=== PATIENT | male | born 1955 | race Caucasian/White ===

== ENCOUNTER 2016-06-29 16:29 | Inpatient (IN) | payer BC ==
[~2016-06-29] VITALS: Ht 172.7 cm; Wt 80.3 kg
[2016-06-29 17:04] VITALS: BP 139/96
[2016-06-29 17:36] LABS: TROPONIN I < 0.30 ng/mL (<=0.30)
[2016-06-29 17:59] LABS: BASOPHILS % (AUTO) 0.9 % (0.0-2.0); EOSINOPHILS % (AUTO) 0.1 % (0.0-3.0); LYMPHOCYTES % (AUTO) 19.6 % (20.0-45.0); MEAN CORPUSCULAR HEMOGLOBIN 28.2 PG (27.0-31.0); MEAN CORPUSCULAR HGB CONC 32.7 G/DL (32.0-36.0); MEAN CORPUSCULAR VOLUME 86 FL (80-99); MEAN PLATELET VOLUME 8.6 FL (6.5-10.1); NEUTROPHILS % (AUTO) 73.4 % (45.0-75.0); PLATELET COUNT 243 K/UL (150-450); RED CELL DISTRIBUTION WIDTH 11.4 % (11.6-14.8); WHITE BLOOD COUNT 8.1 K/UL (4.8-10.8)
[2016-06-29 18:04] LABS: ALANINE AMINOTRANSFERASE 44 U/L (3-41); ALBUMIN/GLOBULIN RATIO 1.1 (1.0-2.7); ANION GAP 25 (5-15); ASPARTATE AMINO TRANSFERASE 40 U/L (5-40); CALCIUM 11.8 mg/dL (8.6-10.2); CARBON DIOXIDE 20 mEQ/L (20-30); CHLORIDE 99 mEQ/L (98-107); CREATININE 1.2 mg/dL (0.7-1.2); GLOMERULAR FILTRATION RATE > 60 mL/min (>60); HEMOLYSIS 47; SODIUM 144 mEQ/L (135-145); TOTAL PROTEIN 7.6 g/dL (6.6-8.7)
[2016-06-29 18:15] LABS: CKMB 4.6 ng/mL (< 6.7)
[2016-06-29 18:19] VITALS: BP 177/113
--- NOTE | 2016-06-29 18:53 | Emergency Room Report ---
History of Present Illness General Chief Complaint: Dyspnea/Respdistress Source: EMS Present Illness HPI 61 YO M with unknown medical history BIBEMS for hypoxia, respiratory distress. Patient denies history of CHF, COPD/asthma. Denies fever/chills, cough. Feels SOB. Denies chest pain. No other history from patient or EMS. No family member or friends are present. Allergies: Coded Allergies: No Known Allergies (Unverified , 06/29/16) Patient History Past Medical History: unable to obtain Past Surgical History: unable to obtain Pertinent Family History: unable to obtain Social History: Denies: alcohol use, drug use, smoking Immunizations: UTD Reviewed Nursing Documentation: PMH: Agreed, PSxH: Agreed Nursing Documentation-PMH Past Medical History: No History, Except For Hx Hypertension: Yes Review of Systems All Other Systems: negative except mentioned in HPI Physical Exam Vital Signs Date Time Temp Pulse Resp B/P Pulse Ox O2 Delivery O2 Flow Rate FiO2 06/29/16 16:30 117 22 148/86 65 Non-Rebreather 15.0 06/29/16 17:02 100 Sp02 EP Interpretation: reviewed, abnormal General Appearance: normal inspection, well appearing, no apparent distress, alert, GCS 15, non-toxic Head: normocephalic, atraumatic Eyes: bilateral eye EOMI, bilateral eye PERRL ENT: normal ENT inspection, hearing grossly normal, normal voice Neck: normal inspection, full range of motion, supple, no bony tend Respiratory: normal inspection, chest non-tender, lungs clear, no respiratory distress, no retraction, no accessory muscle use, no wheezing, decreased breath sounds, other - poor respiratory effort Cardiovascular #1: regular rate, rhythm, no edema Gastrointestinal: normal inspection, normal bowel sounds, non tender, soft, no guarding, no hernia Genitourinary: no CVA tenderness Musculoskeletal: normal inspection, back normal, normal range of motion, Supriya' s Sign negative Neurologic: normal inspection, alert, oriented x3, responsive, 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 No hypotensive. Afebrile Patient immediately placed on hyperbaric tech with rhytm strip and STAT EKG was obtained which showed no acute ischemia VS were stable. No hypoxia. Afebrile. No SIRS. Initial management indicated: CBC, CMP, troponin, BNP, CXR, nebs, steroids, empiric Abx Highly suspected: COPD exacerbation, +/- PNA Possible interventions - BIPAP, additional Abx. CC time included frequent re-exams, interpretation of labs, imaging, adjustment of Abx Critical care time of 35 minutes does not include reportable procedures. Medical Decision Making Diagnostic Impression: Primary Impression: Dyspnea Qualified Codes: R06.00 - Dyspnea, unspecified Additional Impressions: Respiratory distress Hypokalemia ER Course 61 YOM with unknown etiology for acute dyspnea. Improvd O2 sat on BIPAP. Patient has no complaints. Alert and oriented. ECG shows sinus tach, incomplete RBBB. Troponin 0. H&H stable. No leuks. Mild HypoK was replated CXR: No acute PTX, PNA or pulm congestion A: Improved on bipap. Unstable for CT Chest at this point to eval for PE however low suspicion Endorsed to Dr Levy at 650pm EKG Diagnostic Results Rate: tachycardiac Rhythm: other - incomplete RBBB Rhythm Strip Diag. Results EP Interpretation: yes Rate: 105 Rhythm: NSR, no PVC's, no ectopy Chest X-Ray Diagnostic Results EP Interpretation: Yes Findings: no consolidation, no effusion, no pneumothorax, no acute cardiopulmonary disease Number of Views: 1 Last Vital Signs Date Time Temp Pulse Resp B/P Pulse Ox O2 Delivery O2 Flow Rate FiO2 06/29/16 18:19 103 20 177/113 95 Bi-pap 100 06/29/16 17:10 15.0 Status: improved Disposition: ADMITTED INPATIENT Condition: Critical Referrals: [facility],REFERRING (PCP) JOE MOREJON M.D. Jun 29, 2016 18:53
[2016-06-29] MEDS ORDERED: UNOBMED (19:08)
[2016-06-29 19:09] VITALS: BP 180/110
[2016-06-29] MEDS ORDERED: CHLORTHALIDONE25 MG ORAL (19:58)
[2016-06-29 20:00] VITALS: BP 170/95
[2016-06-29] MEDS ORDERED: Milk of Magnesia 30ml Ud ORAL PRN (21:45)
[2016-06-29] MEDS: Albuterol ud Inhalation HHN SCH (23:45)
[2016-06-30 00:01] VITALS: BP 151/94
[2016-06-30] MEDS: Solu-MEDROL 40mg Inj IVP SCH ×4 (00:02→21:35)
[2016-06-30] MEDS: Enoxaparin 80mg Inj SUBQ SCH ×2 (00:14→12:25)
[2016-06-30] MEDS: cefTRIAXone 1 GM in D5W 55 ML IVPB SCH ×2 (01:15→23:36)
[2016-06-30] MEDS: Albuterol ud Inhalation HHN SCH ×6 (02:21→22:46)
[2016-06-30 04:11] VITALS: BP 144/87
[2016-06-30 05:10] LABS: APPEARANCE,URINE CLEAR; KETONES,URINE NEGATIVE (NEGATIVE); LEUKOCYTE ESTERASE ,URINE 1+ (NEGATIVE); NITRITE,URINE NEGATIVE (NEGATIVE); PH,URINE 5 (4.5-8.0); PROTEIN,URINE 3+ (NEGATIVE); UROBILINOGEN,URINE NORMAL MG/DL (0.0-1.0)
[2016-06-30 05:27] LABS: RBC,URINE 15-20 /HPF (0 - 0)
[2016-06-30 05:28] LABS: BACTERIA,URINE FEW /HPF; COARSE GRANULAR CASTS,URINE 0-2 /LPF; SQUAMOUS EPITHELIAL CELL,UR FEW /LPF (NONE/OCC); URIC ACID CRYSTALS,URINE MODERATE /LPF
[2016-06-30 06:56] LABS: BASOPHILS % (AUTO) 0.4 % (0.0-2.0); LYMPHOCYTES % (AUTO) 13.2 % (20.0-45.0); MEAN CORPUSCULAR HEMOGLOBIN 28.4 PG (27.0-31.0); MEAN CORPUSCULAR HGB CONC 33.9 G/DL (32.0-36.0); MEAN CORPUSCULAR VOLUME 84 FL (80-99); MEAN PLATELET VOLUME 8.5 FL (6.5-10.1); MONOCYTES % (AUTO) 4.9 % (1.0-10.0); NEUTROPHILS % (AUTO) 81.5 % (45.0-75.0); PLATELET COUNT 244 K/UL (150-450); RED BLOOD COUNT 4.31 M/UL (4.70-6.10); RED CELL DISTRIBUTION WIDTH 11.9 % (11.6-14.8); WHITE BLOOD COUNT 7.9 K/UL (4.8-10.8)
[2016-06-30 07:27] LABS: ALANINE AMINOTRANSFERASE 36 U/L (3-41); ALBUMIN/GLOBULIN RATIO 1.1 (1.0-2.7); ANION GAP 20 (5-15); ASPARTATE AMINO TRANSFERASE 31 U/L (5-40); CALCIUM 11.5 mg/dL (8.6-10.2); CARBON DIOXIDE 22 mEQ/L (20-30); CHLORIDE 105 mEQ/L (98-107); CHOLESTEROL 125 mg/dL (< 200); CHOLESTEROL/HDL RATIO 3.2 (3.3-4.4); CREATININE 1.2 mg/dL (0.7-1.2); GLOMERULAR FILTRATION RATE > 60 mL/min (>60); HEMOLYSIS 2; LDL CHOLESTEROL (CALC.) 76 mg/dL (60-99); SODIUM 147 mEQ/L (135-145); TOTAL PROTEIN 7.1 g/dL (6.6-8.7)
[2016-06-30 07:49] LABS: TROPONIN I 0.42 ng/mL (<=0.30)
[2016-06-30] MEDS: Aspirin EC 81mg tab ORAL SCH (09:35)
[2016-06-30 10:36] LABS: ABG ALLEN TEST POSITIVE; ABG BASE EXCESS 0; ABG PCO2 26.8 mmHg (35.0-45.0)
--- NOTE | 2016-06-30 10:56 | Diagnostic Imaging Report ---
Indication: SOB Technique: One view of the chest Comparison: none Findings: The heart is enlarged. There is minimal right basilar atelectasis. Lungs and pleural spaces are otherwise clear. There is a nondisplaced fracture of the left seventh rib. Impression: Bibasilar atelectasis Cardio megaly Left seventh rib compression fracture
[2016-06-30 12:19] VITALS: BP 140/78
--- NOTE | 2016-06-30 12:58 | Diagnostic Imaging Report ---
ndication: 51-year-old male with unknown etiology for acute dyspnea Technique: IV administration nonionic contrast. Spiral acquisitions obtained from the lung bases to the lung apices. Multiplanar and 3-D reconstructions were generated. Total dose length product 832 mGycm. CTDIvol(s) 12, 12, 100, 23 mGy Comparison: None Findings: Pulmonary arterial opacification is adequate not optimal. In addition, there is extensive image degradation due to respiratory motion artifact. No gross central large vessel pulmonary embolus is demonstrated. However, motion artifact precludes exclusion of embolus at the lung bases. Normal caliber pulmonary arteries. The heart is enlarged with global 4 chamber cardiomegaly but no disproportionate left ventricular dilatation is noted. The ascending thoracic aorta is ectatic, measuring 4.2 cm diameter, but not frankly aneurysmal. No thoracic aortic dissection is demonstrated. The lung parenchyma demonstrates a noncalcified soft tissue mass in the superior segment of the right lower lobe, which measures 14 mm diameter. There is compressive atelectasis at both lung bases. There is a small left pleural effusion. There is pleural thickening on the left. There is focal pleural thickening versus mass in the anterior pleural space at the level of pulmonary marnie on the right. There is diffuse bony involvement by innumerable osteolytic lesions. Essentially every thoracic vertebral is in the false by tumor, and there is extensive posterior element involvement as well. At the T10 level, tumor extends through the posterior wall of the vertebral body and well into the spinal canal, narrowing the spinal canal to a minimum AP dimension of 6 mm. There are compression fracture deformities of the T10, T11, T12, and L1 vertebral bodies. These results in pronounced kyphotic deformity. There is also thoracic scoliotic deformity, mild. There is also diffuse involvement of the ribs bilaterally, and there is a pathologic fracture of the posterior ninth rib. There are also pathologic fractures of the posterior lateral left seventh rib and the posterior right 10th rib. There is extensive osteolytic involvement of the sternum. No pericardial effusion. The esophagus is unremarkable. No mediastinal or hilar mass or adenopathy. The included thyroid is unremarkable. No axillary or chest wall mass or adenopathy. The included upper abdominal anatomy demonstrates a 2.2 cm left upper pole renal cyst. Impression: Very limited exam for assessment of acute pulmonary embolus, due to suboptimal distal contrast opacification and, especially, extensive respiratory motion artifact. No gross large vessel central pulmonary embolus demonstrated. Extensive and diffuse bony involvement by multiple osteolytic lesions. 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 Multiple pathologic rib fractures, as described Multiple pathologic vertebral body compression fractures, as described. Resultant kyphotic deformity 14 mm right lower lobe superior segment lung mass, possibly the primary tumor Bilateral left greater than right basilar atelectatic changes and small left-sided pleural effusion Bilateral pleural thickening, possibly malignant Incidental finding of left upper pole renal cyst Findings discussed by phone with Dr. Nolan at the time of interpretation The CT scanner at [facility] is accredited by the [employer] and the scans are performed using protocols designed to limit radiation exposure to as low as reasonably achievable to attain images of sufficient resolution adequate for diagnostic evaluation.
[2016-06-30] MEDS ORDERED: oxyCODONE 5mg IR tab ORAL PRN (14:30)
[2016-06-30] MEDS: oxyCODONE 5mg IR tab ORAL SCH ×3 (14:42→22:36)
[2016-06-30 16:02] VITALS: BP 145/89
[2016-06-30] MEDS ORDERED: Tubing IV Secondary IV ONE (18:20)
[2016-06-30 20:18] VITALS: BP 151/80
--- NOTE | 2016-06-30 22:07 | History and Physical Report ---
DATE OF ADMISSION: 06/29/2016 CHIEF COMPLAINT AND REASON FOR HOSPITALIZATION: The patient presents with abnormal laboratories, back pain and shortness of breath. HISTORY OF PRESENT ILLNESS: The patient presents with shortness of breath and was placed on BiPAP for hypoxemia in the emergency room. He is complaining of back pain for about a month, worsening recently and came with shortness of breath. The patient is a nonsmoker, no history of chronic lung disease. There is a history of hypertension and back pain. He has not really been seen doctors on a regular basis. The patient prior to this has generally been in good health. PAST SURGICAL HISTORY: As a young child, some sort of skull lesion, possible fracture. MEDICATIONS: Chlorthalidone and he has recently taken tramadol, muscle relaxant one or two times and Voltaren cream. ALLERGIES: At 1-month-old, he apparently had an adverse reaction to erythromycin or similar drug. HABITS: He is a nonsmoker. Rare alcohol drinker. No illicit drugs. SOCIAL HISTORY: He has a close female radiology technologist. He works as an staff attorney. FAMILY HISTORY: Father had after having a CVA five years prior to in his 70s. His uncle and a grandfather in their 70s with myocardial infarction. Mother had cancer and Alzheimer disease. He has one brother one sister, alive and well. REVIEW OF SYSTEMS: HEENT: Vision hearing is good. Endocrine: No known diabetes or thyroid disease. Pulmonary: No prior history of asthma, TB, chronic cough or shortness of breath. Cardiac: No history of angina or MA. There is a history of hypertension. Gastrointestinal: No gastrointestinal bleeding or ulcers. He has had mild constipation lately. No change in stools other than constipation. Genitourinary: He has nocturia about three times. No dysuria or dribbling. Musculoskeletal: He had severe back pain and kyphosis, recent onset. He has had some swelling in the left leg. Neurologic: No paresthesias, numbness or focal weakness. No history of stroke, seizures or syncope. PHYSICAL EXAMINATION: GENERAL: The patient is alert man, somewhat anxious lying in bed, in pain. VITAL SIGNS: Temperature 96.9 degrees, pulse 96, respirations 20, and blood pressure 140/78, and pulse oximetry 98%. HEENT: Sclerae nonicteric. Ocular motions intact in all directions. Oral mucosa is slightly dry. NECK: No adenopathy or thyroid enlargement. LUNGS: Clear. Distant breath sounds. BACK: Severe kyphosis. HEART: Regular rhythm. I hear no murmur. ABDOMEN: Soft without organomegaly or masses. EXTREMITIES: No edema, cyanosis or clubbing. There is some varicose veins. There is no swollen joints. NEUROLOGIC: He is alert and oriented. Ocular motions intact in all directions. Smile symmetric. Tongue is midline. He moves all extremities equally, but has quite a bit of pain with any movement in bed and requires two person assist to turn him in bed. RECTAL: Prostate is enlarged 1/4 smooth with no nodules. Light brown stool on the glove. Testes are normal. LABORATORY AND DIAGNOSTIC DATA: Review of pertinent labs show a white count of 8.1 and hemoglobin is 14.1. The calcium 11.8 and repeat 11.5. Potassium is 3, BUN 32, and creatinine 1.2. BNP 863. Troponin less than 0.30 and 0.42. Albumin is 3.8. Alkaline globulin of 3.1. Urinalysis showed 15 to 20 red cells per high-power field and 2 to 4 white cells per high-power field. He did have a CT scan of the lung and chest, which shows multiple bony metastases, cardiomegaly and some possible spinal cord compression at T10, multiple pathologic fractures, bilateral left greater than right basal atelectatic change with small left-sided pleural effusions, bilateral pleural thickening, possible malignant and there is a noncalcified soft tissue mass in the superior segment of the right lower lobe. IMPRESSION: The patient presents with shortness of breath. Significant findings include hypercalcemia, bone metastasis, possible lung primary versus metastatic lesion in the lung. Shortness of breath has improved with steroids and respiratory therapy. There is no definite evidence of pulmonary emboli and DVT study is negative. He also has cardiomegaly and borderline troponin. PLAN: The patient will receive steroids both for the pulmonary effect on calcium. We will do saline diuresis for his hypercalcemia. The patient has been informed that he very likely has a malignancy and will need further imaging tissue, biopsy, evaluation of spine and combined approach. He is aware of this diagnosis. He will also need pain management. Detailed orders were written. Jass Nolan M.D. DR: NASH JOB#: [id number] CC:
--- NOTE | 2016-06-30 22:27 | Consultation ---
DATE OF CONSULTATION: 06/30/2016 PULMONARY CONSULTATION HISTORY OF PRESENT ILLNESS: This is a 61-year-old male with unknown past history of possible hypoxic respiratory distress. He was placed on the BiPAP this morning. The BiPAP was off. The patient denies any other problems at this point in time. He is in the process of being weak for the CT scan. The patient denies any headaches, hematemesis, melena, or hematochezia. PAST MEDICAL HISTORY: Unknown. SURGERIES: Not known. PHYSICAL EXAMINATION: GENERAL: Reveals a 61-year-old. VITAL SIGNS: Blood pressure is 140/70, heart rate 84, and respirations 18, and afebrile. HEENT: Unremarkable. CHEST: Clear breath sounds bilaterally. ABDOMEN: Soft. EXTREMITIES: No edema. LABORATORY DATA: Lab testing shows normal CBC. Creatinine of 1.2. Potassium of 3. Troponin is 0.42, which is elevated. Pro-BNP 363. WBC of 0.5, 87. Tox screen negative. Urinalysis shows few WBCs. IMAGING STUDIES: Show a CT pulmonary angiogram with multiple pathological fractures possibly cord compression at T10 and bilateral effusions. IMPRESSION: 1. 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 2. Respiratory insufficiency. DISCUSSION: We will defer care to Dr. Nolan. At this time, the patient is stable. He needs high level of care possibly steroid and transfer to facility, which did provide him aggressive local wound care. We will discuss with Dr. Nolan. Enmanuel Woodall M.D. DR: GOGO JOB#: [id number] CC:
[2016-06-30 23:43] VITALS: BP 138/93
--- NOTE | 2016-07-01 00:07 | Consultation ---
DATE OF CONSULTATION: 06/30/2016 CARDIOLOGY CONSULTATION REQUESTING PHYSICIAN: Jass Nolan M.D. REASON FOR CONSULTATION: Elevated troponin level. HISTORY OF PRESENT ILLNESS: The patient is a 61-year-old male presented to the emergency room with shortness of breath and hypoxia. He denied any other constitutional symptoms or any prior history of cardiopulmonary disease. He was evaluated in the emergency room for pulmonary emboli with a CT angiogram of the chest, which was negative, but did reveal some diffuse osteolytic lesions of the spine and ribs. The patient was also noted to have a low potassium level. His initial troponin level was normal, however, repeat troponin level was 0.42. The patient continues to deny any chest pain or shortness of breath. PAST MEDICAL HISTORY: Hypertension, otherwise negative. ALLERGIES: None known. MEDICATIONS: Prior to admission, chlorthalidone. FAMILY HISTORY: Noncontributory. SOCIAL HISTORY: Negative for smoking, alcohol, or substance abuse. REVIEW OF SYSTEMS: A 10-point review of systems performed. Pertinent data outlined above. Otherwise all systems negative. PHYSICAL EXAMINATION: VITAL SIGNS: Blood pressure 148/86, pulse 117, respirations 22, and afebrile. HEENT: Conjunctivae are pink. Sclerae are anicteric. Oropharynx clear. NECK: Supple. LUNGS: Clear. CARDIAC: Regular. Normal S1 and S2. No murmur. ABDOMEN: Soft and nontender. EXTREMITIES: No edema. LABORATORY AND DIAGNOSTIC STUDIES: EKG reveals sinus tachycardia, incomplete right bundle-branch block. Potassium is 3.0. Arterial blood gas 7.52, 27, and 87. IMPRESSION: 1. Dyspnea. 2. Acute respiratory alkalosis. 3. Elevated troponin level suggesting acute myocardial ischemia and possible non-ST elevation infarction. 4. Sinus tachycardia. 5. Right bundle-branch block of no clinical significance. 6. Osteolytic lesions of the spine and ribs of unknown etiology at this time. 7. Hypokalemia. 8. Echocardiogram revealed normal ejection fraction and a diastolic relaxation abnormality with no signs of pulmonary hypertension or pericardial effusion. RECOMMENDATIONS: Recommend cardiac monitoring, serial troponins, oral aspirin, nasal oxygen, DVT prophylaxis, pain control, and PSA. We will follow with you during this hospital course. Del Gaines M.D. DR: BLANCA JOB#: [id number] CC:
[2016-07-01] MEDS: oxyCODONE 5mg IR tab ORAL SCH ×6 (02:24→22:19)
[2016-07-01] MEDS: Albuterol ud Inhalation HHN SCH ×6 (03:01→23:00)
[2016-07-01 03:43] VITALS: BP 136/84
[2016-07-01 04:41] LABS: BASOPHILS % (AUTO) 0.1 % (0.0-2.0); EOSINOPHILS % (AUTO) 0.1 % (0.0-3.0); LYMPHOCYTES % (AUTO) 11.7 % (20.0-45.0); MEAN CORPUSCULAR HGB CONC 34.3 G/DL (32.0-36.0); MEAN CORPUSCULAR VOLUME 84 FL (80-99); MEAN PLATELET VOLUME 9.1 FL (6.5-10.1); MONOCYTES % (AUTO) 4.3 % (1.0-10.0); NEUTROPHILS % (AUTO) 83.8 % (45.0-75.0); PLATELET COUNT 268 K/UL (150-450); RED BLOOD COUNT 4.06 M/UL (4.70-6.10); RED CELL DISTRIBUTION WIDTH 11.5 % (11.6-14.8); WHITE BLOOD COUNT 10.7 K/UL (4.8-10.8)
[2016-07-01 05:13] LABS: ALBUMIN/GLOBULIN RATIO 1.2 (1.0-2.7); CALCIUM 10.5 mg/dL (8.6-10.2); CREATININE 1.3 mg/dL (0.7-1.2); GLOMERULAR FILTRATION RATE 56.1 mL/min (>60); MAGNESIUM 1.6 mg/dL (1.7-2.5); PHOSPHORUS 4.8 mg/dL (2.5-4.8); POTASSIUM 4.6 mEQ/L (3.4-4.9); TOTAL PROTEIN 6.6 g/dL (6.6-8.7)
[2016-07-01] MEDS: Solu-MEDROL 40mg Inj IVP SCH (06:18)
[2016-07-01 07:03] LABS: PSA TOTAL 3.2 ng/mL (< 4.5)
[2016-07-01 08:00] VITALS: BP 137/88
[2016-07-01 08:15] LABS: TROPONIN I < 0.30 ng/mL (<=0.30)
[2016-07-01] MEDS: Aspirin EC 81mg tab ORAL SCH (08:16)
[2016-07-01] MEDS: Enoxaparin 40mg Inj SUBQ SCH (08:18)
--- NOTE | 2016-07-01 08:33 | Pulmonology Progress Note ---
Assessment/Plan Assessment/Plan ASSESSMENT: Acute hypoxemic respiratory failure New Dx RLL SS mass with multiple lytic lesions B effusions and BiB atx NSTEMI Impending spinal cord compression @ T10 HyperCa++ PLAN: Optimize pulmonary hygiene/mobilize as tolerated Titrate down FiO2 to keep SaO2 > 90% RTC and PRN nebs Continue IV Decadron Monitor volumes LMWH Serial neuro exam Awaiting transfer to higher level of care Subjective Allergies: Coded Allergies: No Known Allergies (Unverified , 06/29/16) Subjective On VM, o/w VSS + SOB, no cough, no F/C, feels week, no CP Ca++ better, trop downtrending Objective Last 24 Hour Vital Signs Date Time Temp Pulse Resp B/P Pulse Ox O2 Delivery O2 Flow Rate FiO2 07/01/16 06:55 90 20 96 Venturi Mask 14.0 55 07/01/16 06:50 88 20 94 Venturi Mask 14.0 55 07/01/16 06:50 Venturi Mask 14.0 55 07/01/16 06:50 94 Venturi Mask 4.0 55 07/01/16 03:57 90 07/01/16 03:43 97.3 94 18 136/84 91 Venturi Mask 55 07/01/16 03:08 90 20 93 Venturi Mask 14.0 55 07/01/16 03:01 92 20 92 Venturi Mask 12.0 50 06/30/16 23:53 95 06/30/16 23:43 97.7 103 20 138/93 91 Venturi Mask 50 06/30/16 22:55 88 20 93 Venturi Mask 12.0 50 06/30/16 22:46 88 20 92 Venturi Mask 10.0 45 06/30/16 21:34 109 151/80 06/30/16 20:22 45.0 88 06/30/16 20:18 97.0 109 20 151/80 88 Venturi Mask 6.0 06/30/16 20:00 103 06/30/16 19:44 103 20 94 Venturi Mask 10.0 45 06/30/16 19:36 94 Nasal Cannula 4.0 36 06/30/16 19:36 Nasal Cannula 4.0 36 06/30/16 19:35 105 20 94 Nasal Cannula 4.0 36 06/30/16 16:02 97.9 104 20 145/89 99 Nasal Cannula 2.0 06/30/16 16:00 103 06/30/16 16:00 3.0 06/30/16 15:00 Nasal Cannula 06/30/16 15:00 Nasal Cannula 06/30/16 13:59 113 06/30/16 12:45 95 22 97 4.0 36 06/30/16 12:19 96.9 96 20 140/78 70 Bi-pap 95 06/30/16 12:19 3.0 06/30/16 10:56 92 22 98 Nasal Cannula 4.0 36 06/30/16 10:46 36 06/30/16 10:46 89 20 96 Nasal Cannula 4.0 36 06/30/16 10:46 89 20 96 4.0 36 06/30/16 09:10 102 24 96 4.0 36 06/30/16 08:56 107 Intake and Output 06/30/16 07/01/16 19:00 07:00 Intake Total 1570 ml 2955 ml Output Total 450 ml 2070 ml Balance 1120 ml 885 ml Intake Oral 520 ml 500 ml IV Total 1050 ml 2455 ml Output Urine Total 450 ml 2070 ml # Voids 4 General Appearance: other - mild distress on VM HEENT: normocephalic, atraumatic, mucous membranes moist Respiratory/Chest: chest wall non-tender, lungs clear, normal breath sounds Cardiovascular: normal peripheral pulses, normal rate, regular rhythm Abdomen: normal bowel sounds, soft, non tender, no organomegaly, non distended Extremities: no cyanosis, no clubbing, no edema Microbiology Date/Time Source Procedure Growth Status 06/29/16 16:40 Blood Arm Right Blood Culture - Preliminary NO GROWTH AFTER 24 HOURS Resulted 06/29/16 16:10 Blood Blood Culture - Preliminary NO GROWTH AFTER 24 HOURS Resulted 06/30/16 05:30 Sputum Expectorated Gram Stain Pending Resulted 06/30/16 05:30 Sputum Expectorated Sputum Culture - Preliminary NORMAL UPPER RESPIRATORY MABLE AT 24 ... Resulted Laboratory Tests 07/01/16 04:05: White Blood Count 10.7, Red Blood Count 4.06L, Hemoglobin 11.8L, Hematocrit 34.3L, Mean Corpuscular Volume 84, Mean Corpuscular Hemoglobin 29.0, Mean Corpuscular Hemoglobin Concent 34.3, Red Cell Distribution Width 11.5L, Platelet Count 268, Mean Platelet Volume 9.1, Neutrophils (%) (Auto) 83.8H, Lymphocytes (%) (Auto) 11.7L, Monocytes (%) (Auto) 4.3, Eosinophils (%) (Auto) 0.1, Basophils (%) (Auto) 0.1, Sodium Level 139, Potassium Level 4.6#, Chloride Level 101, Carbon Dioxide Level 19L, Anion Gap 19H, Blood Urea Nitrogen 34H, Creatinine 1.3H, Estimat Glomerular Filtration Rate 56.1, Glucose Level 138H, Calcium Level 10.5H, Phosphorus Level 4.8, Magnesium Level 1.6L, Total Bilirubin 0.7, Aspartate Amino Transf (AST/SGOT) 32, Alanine Aminotransferase ( ALT/SGPT) 36, Alkaline Phosphatase 111, Troponin I < 0.30, Pro-B-Type Natriuretic Peptide 400H, Total Protein 6.6, Albumin 3.6, Globulin 3.0, Albumin/ Globulin Ratio 1.2, Carcinoembryonic Antigen 0.9, Prostate Specific Antigen 3.2 Current Medications Medications (Trade) Dose Ordered Sig/Mikal Route PRN Reason Start Time Stop Time Status Last Admin Dose Admin Acetaminophen 650 mg 650 mg Q4H PRN ORAL Mild Pain/Temp > 100.5 06/29/16 21:45 07/29/16 21:44 Albuterol Sulfate (Proventil) 2.5 mg Q4HRT HHN 06/29/16 23:00 07/04/16 22:59 07/01/16 06:57 Amlodipine Besylate (Norvasc) 10 mg DAILY@2100 ORAL 06/29/16 23:00 07/29/16 22:59 06/30/16 21:34 Aspirin 81 mg 81 mg DAILY ORAL 06/30/16 09:00 07/30/16 08:59 07/01/16 08:16 Ceftriaxone Sodium/Dextrose (Rocephin/D5W) 55 ml @ 110 mls/hr Q24H IVPB 06/30/16 00:00 07/07/16 00:00 06/30/16 23:36 Dexamethasone Sodium Phosphate (Decadron 4mg/ml vial) 4 mg Q6HR IVP 07/01/16 12:00 07/31/16 11:59 Enoxaparin Sodium (Lovenox) 40 mg DAILY SUBQ 07/01/16 09:00 07/31/16 08:59 07/01/16 08:18 Furosemide (Lasix) 40 mg EVERY 8 HOURS IV 06/30/16 14:30 07/30/16 14:29 07/01/16 06:18 Magnesium Hydroxide (Mom) 30 ml DAILYPRN PRN ORAL Constipation 06/29/16 21:45 07/29/16 21:44 Oxycodone HCl (Roxicodone) 10 mg Q4H ORAL 06/30/16 14:30 07/07/16 14:29 07/01/16 06:18 Oxycodone HCl (Roxicodone) 10 mg Q4H PRN ORAL Breakthrough Pain 06/30/16 14:30 07/07/16 14:29 Potassium Chloride/Sodium Chloride (KCl/Sodium Chloride 1000ml bag) 1,020 ml @ 200 mls/hr Q5H6M IV 06/30/16 16:00 07/30/16 15:59 07/01/16 08:01 Potassium Chloride (K-Dur) 40 meq TWICE A DAY ORAL 06/30/16 14:30 07/30/16 14:29 07/01/16 08:17 ZOHREH NUNEZ M.D. Jul 01, 2016 08:33
[2016-07-01] MEDS: Dexamethasone 4mg/ml vial IVP SCH ×3 (11:52→23:36)
[2016-07-01 12:00] VITALS: BP 146/80
--- NOTE | 2016-07-01 13:22 | Cardiology Report ---
APPROVED REPORT EXAM: Two-dimensional and M-mode echocardiogram with Doppler and color Doppler. INDICATION Chest Pain M-Mode DIMENSIONS IVSd1.1 (0.7-1.1cm)Left Atrium (MM)3.9 (1.6-4.0cm) LVDd5.0 (3.5-5.6cm)Aortic Root3.6 (2.0-3.7cm) PWd1.0 (0.7-1.1cm)Aortic Cusp Exc.2.7 (1.5-2.0cm) LVDs2.0 (2.5-4.0cm) PWs1.5 cm Technically difficult study due to poor acoustic windows. Study quality precludes accurate assessment of regional wall motion. Normal left ventricular systolic function and wall motion. Left ventricular ejection fraction estimated to be 55-60 %. No evidence of ventricular hypertrophy. No evidence of pericardial fat or effusion. Mild Bi-atrial enlargement. Mild left ventricular enlargement. Right ventricular cardiac chamber size is within normal limits. Mild focal aortic valve sclerosis with adequate cusp excursion. Mildly thickened mitral valve leaflets with normal excursion. Mild mitral annulus and aortic root calcification. Pulmonic valve visualized. Normal tricuspid valve structure. IVC dilated at 2.7cm with physiologic collapse. A color flow and spectral Doppler study was performed and revealed: Trace aortic regurgitation. Trace mitral regurgitation. Mitral inflow velocities indicates possible pseudo normalization pattern implying significant left ventricular diastolic dysfunction (Grade II). Trace tricuspid regurgitation. Tricuspid systolic velocities suggests peak right ventricular systolic pressure of 17 mmHg. Trace pulmonic regurgitation present.
[2016-07-01 16:00] VITALS: BP 139/90
--- NOTE | 2016-07-01 17:38 | Discharge Summary ---
DATE OF ADMISSION: 06/29/2016 DATE OF DISCHARGE: 07/02/2016 PERTINENT HISTORY: The patient presents with about a month history of back pain and new onset of shortness of breath. He was seen in the emergency room and thought to need BiPAP for hypoxemia, but this rapidly improved. PERTINENT PHYSICAL FINDINGS: LUNGS: Clear. HEART: Regular rhythm. ABDOMEN: Soft. I am unable to feel liver or spleen. BACK: Severe kyphosis. He was in severe pain and unable to turn in bed on assist. COURSE IN THE HOSPITAL: The patient was found to have hypercalcemia and CT evidence of multiple spinal metastases and rib metastases, etiology uncertain. There was a small lung nodule, not clear if this was a malignancy. He has no obvious source of malignancy. The patient was given pain management, IV saline, and Lasix for a calcium diuresis and intravenous steroids for hypercalcemia as well as possible bronchospasm. On the day of discharge, his lungs were clear. Heart, regular rhythm. Abdomen was soft and nontender. His pain was better controlled and arrangements were made for him to transfer to [facility] for further evaluation and treatment. FINAL DIAGNOSES: 1. 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 2. T10 spinal cord compression with narrowing of the spinal canal with no leg weakness or numbness or bladder dysfunction. 3. Hypercalcemia of malignancy. 4. Dyspnea and hypoxemia, etiology unclear, improved with steroids and nebulizer treatment. 5. Cardiomegaly. 6. History of hypertension. DISCHARGE DISPOSITION: He is discharged on a regular diet. All medications will be reassessed at [facility] and I have spoken to a resident physician at [facility], who is aware of his condition and I have spoken to the patient and his family. Jass Nolan M.D. DR: KIKI JOB#: [id number] CC: WENRER
--- NOTE | 2016-07-01 18:29 | General Progress Note ---
Assessment/Plan Problem List: (1) Spinal cord compression due to malignant neoplasm metastatic to spine ICD Codes: G95.20 - Unspecified cord compression; C79.51 - Secondary malignant neoplasm of bone SNOMED: 281969009 (2) Metastasis to spinal column ICD Codes: C79.51 - Secondary malignant neoplasm of bone SNOMED: 37334279 (3) Metastatic adenocarcinoma of unknown origin ICD Codes: C80.1 - Malignant (primary) neoplasm, unspecified SNOMED: 436822306 (4) Hypercalcemia ICD Codes: E83.52 - Hypercalcemia SNOMED: 24773554 (5) Respiratory distress ICD Codes: R06.00 - Dyspnea, unspecified SNOMED: 541115743 Assessment/Plan pain and calcium better, awaiting transfer to [facility] Subjective Constitutional: Reports: weakness HEENT: Reports: no symptoms Cardiovascular: Reports: no symptoms Respiratory: Reports: no symptoms Gastrointestinal/Abdominal: Reports: no symptoms Genitourinary: Reports: no symptoms Neurologic/Psychiatric: Reports: no symptoms Endocrine: Reports: no symptoms Hematologic/Lymphatic: Reports: no symptoms Allergies: Coded Allergies: No Known Allergies (Unverified , 06/29/16) Subjective less pain Objective Last 24 Hour Vital Signs Date Time Temp Pulse Resp B/P Pulse Ox O2 Delivery O2 Flow Rate FiO2 07/01/16 16:00 117 07/01/16 16:00 97.9 109 16 139/90 93 Simple Mask 15.0 07/01/16 14:50 95 20 90 Venturi Mask 14.0 55 07/01/16 14:50 97 20 97 Venturi Mask 14.0 55 07/01/16 12:00 98 07/01/16 12:00 97.5 105 22 146/80 91 Venturi Mask 55 07/01/16 10:40 89 20 96 Venturi Mask 14.0 55 07/01/16 10:40 88 20 89 Venturi Mask 14.0 55 07/01/16 08:00 96.3 111 20 137/88 91 Venturi Mask 55 07/01/16 08:00 99 07/01/16 07:57 115 07/01/16 06:55 90 20 96 Venturi Mask 14.0 55 07/01/16 06:50 88 20 94 Venturi Mask 14.0 55 07/01/16 06:50 Venturi Mask 14.0 55 07/01/16 06:50 94 Venturi Mask 4.0 55 07/01/16 03:57 90 07/01/16 03:43 97.3 94 18 136/84 91 Venturi Mask 55 07/01/16 03:08 90 20 93 Venturi Mask 14.0 55 07/01/16 03:01 92 20 92 Venturi Mask 12.0 50 06/30/16 23:53 95 06/30/16 23:43 97.7 103 20 138/93 91 Venturi Mask 50 06/30/16 22:55 88 20 93 Venturi Mask 12.0 50 06/30/16 22:46 88 20 92 Venturi Mask 10.0 45 06/30/16 21:34 109 151/80 06/30/16 20:22 45.0 88 06/30/16 20:18 97.0 109 20 151/80 88 Venturi Mask 6.0 06/30/16 20:00 103 06/30/16 19:44 103 20 94 Venturi Mask 10.0 45 06/30/16 19:36 94 Nasal Cannula 4.0 36 06/30/16 19:36 Nasal Cannula 4.0 36 06/30/16 19:35 105 20 94 Nasal Cannula 4.0 36 Intake and Output 06/30/16 07/01/16 19:00 07:00 Intake Total 1570 ml 2955 ml Output Total 450 ml 2070 ml Balance 1120 ml 885 ml Intake Oral 520 ml 500 ml IV Total 1050 ml 2455 ml Output Urine Total 450 ml 2070 ml # Voids 4 Laboratory Tests 07/01/16 04:05: White Blood Count 10.7, Red Blood Count 4.06L, Hemoglobin 11.8L, Hematocrit 34.3L, Mean Corpuscular Volume 84, Mean Corpuscular Hemoglobin 29.0, Mean Corpuscular Hemoglobin Concent 34.3, Red Cell Distribution Width 11.5L, Platelet Count 268, Mean Platelet Volume 9.1, Neutrophils (%) (Auto) 83.8H, Lymphocytes (%) (Auto) 11.7L, Monocytes (%) (Auto) 4.3, Eosinophils (%) (Auto) 0.1, Basophils (%) (Auto) 0.1, Sodium Level 139, Potassium Level 4.6#, Chloride Level 101, Carbon Dioxide Level 19L, Anion Gap 19H, Blood Urea Nitrogen 34H, Creatinine 1.3H, Estimat Glomerular Filtration Rate 56.1, Glucose Level 138H, Calcium Level 10.5H, Phosphorus Level 4.8, Magnesium Level 1.6L, Total Bilirubin 0.7, Aspartate Amino Transf (AST/SGOT) 32, Alanine Aminotransferase ( ALT/SGPT) 36, Alkaline Phosphatase 111, Troponin I < 0.30, Pro-B-Type Natriuretic Peptide 400H, Total Protein 6.6, Albumin 3.6, Globulin 3.0, Albumin/ Globulin Ratio 1.2, Carcinoembryonic Antigen 0.9, Prostate Specific Antigen 3.2 Height (Feet): 5 Height (Inches): 8.00 Weight (Pounds): 177 General Appearance: no apparent distress, alert EENT: normal ENT inspection Neck: normal alignment Cardiovascular: normal rate, regular rhythm Respiratory/Chest: lungs clear Abdomen: non tender Edema: no edema noted Arm (L), no edema noted Arm (R), no edema noted Leg (L), no edema noted Leg (R), no edema noted Pedal (L), no edema noted Pedal (R), no edema noted Generalized Neurologic: etiologist II-XII grossly normal OJ GHOTRA Jul 01, 2016 18:29
[2016-07-01 20:13] VITALS: BP 140/99
[2016-07-01] MEDS: cefTRIAXone 1 GM in D5W 55 ML IVPB SCH (23:36)
[2016-07-02] VITALS: BP 156/97
[2016-07-02] MEDS: Albuterol ud Inhalation HHN SCH ×4 (03:20→14:55)
[2016-07-02] MEDS: oxyCODONE 5mg IR tab ORAL SCH ×4 (03:24→14:06)
[2016-07-02 04:00] VITALS: BP 142/90
[2016-07-02] MEDS: Dexamethasone 4mg/ml vial IVP SCH ×2 (06:00→11:49)
[2016-07-02 08:00] VITALS: BP 145/91
[2016-07-02] MEDS: Aspirin EC 81mg tab ORAL SCH (08:06)
[2016-07-02] MEDS: Enoxaparin 40mg Inj SUBQ SCH (08:08)
[2016-07-02 12:00] VITALS: BP 149/99
[2016-07-02] MEDS ORDERED: Vancomycin 1.5 GM in D5W 325 ML IVPB ONE (12:00)
[2016-07-02 13:10] LABS: THYROID STIMULATING HORMONE 0.854 uIU/mL (0.300-4.500)
[2016-07-02 16:43] VITALS: BP 161/97
[2016-07-02] MEDS ORDERED: Tubing IV Secondary IV ONE (17:17)
--- NOTE | 2016-07-02 22:57 | Consultation ---
DATE OF CONSULTATION: 07/02/2016 NOTE: "POOR AUDIO QUALITY" HEMATOLOGY/ONCOLOGY CONSULTATION CONSULTING PHYSICIAN: Ariel Campuzano M.D. REQUESTING PHYSICIAN: Jass Nolan M.D. REASON FOR CONSULTATION: Evaluation of metastatic disease. IDENTIFYING DATA: Dear Dr. Jass Nolan, The patient is a pleasant 61-year-old male with past medical history, which is significant for hypertension, , shortness of breath, placed on BiPAP, had had hypoxemia. had diffuse metastatic disease on the CAT scan with CT angiogram malignancy. He is a nonsmoker and rarely uses alcohol. He was also noted to have mild anemia. Hematology/Oncology service was consulted for further evaluation and treatment. The patient was noted on imaging to have potential impending spinal cord compression at T10 and had an elevated calcium level bilateral effusions. The patient currently will be transferred to [facility]. PAST MEDICAL HISTORY: Hypertension, potential fracture. MEDICATIONS: Chlorthalidone, tramadol, . ALLERGIES: Erythromycin. SOCIAL HISTORY: No alcohol, tobacco, and no illicit drug use, rarely, occasionally uses alcohol. Family History: Father after having 02:15 ago. . Uncle and grandfather in their 70s with myocardial infarction. Mother cancer, Alzheimer disease. has one brother and one sister . REVIEW OF SYSTEMS: Constitutional: No fevers, chills, or night sweats. Skin: No rashes, bumps, or itching. HEENT: No headache, blurry vision, or double vision. Breasts: No lumps, pain, or discharge. Pulmonary: Some shortness of breath was reported. Cardiovascular: No chest pain, tenderness, or palpitations. Gastrointestinal: No nausea, vomiting, or diarrhea. Genitourinary: No dysuria, frequency, or urgency. Musculoskeletal: No joint pain, muscle pain, or trauma. Neurologic: No dizziness, fainting, or seizures. PHYSICAL EXAMINATION: GENERAL: The patient is in no acute distress. VITAL SIGNS: Temperature 97.1 degrees Fahrenheit, pulse 104, respiratory rate 12, blood pressure 145/91, and pulse oximetry 99% on Venti-mask 14 liters. PULMONARY: Decreased breath sounds. CARDIOVASCULAR: Regular rate and rhythm. GASTROINTESTINAL: Abdomen is soft, nontender, and nondistended. EXTREMITIES: A 1+ edema. LABORATORY AND DIAGNOSTIC DATA: WBC 10.7, hemoglobin 11.8, hematocrit 34, and platelet count 268,000. BUN of 34 and creatinine 1.3. Calcium trended at 10.5. BNP of 400. Toxicology, urine is negative. The patient potentially . Chest and lungs CTA, both were pathologically compression fractures, multiple rib fractures, findings concerning for spinal cord compression, bilateral pleural thickening, potentially malignant. ASSESSMENT: 1. Diffuse skeletal metastasis in addition to bilateral effusions. PSA is less than 1. Concerning for metastatic disease of either thyroid, lungs, or breast origin, most likely related to lungs. We will obtain a CAT scan of chest, abdomen, and pelvis for further evaluation and treatment. 2. spinal cord compression at T10. MRI to be ordered if the patient is not transferred. The patient currently is without any neurologic symptoms. Consider Neurology followup. 3. . 4. rule out gastrointestinal bleed. 5. Non-ST elevation myocardial infarction. 6. Hypercalcemia, potentially paraneoplastic syndrome. 7. . RECOMMENDATIONS: 1. Potentially to be transferred to [facility]. 2. Consider MRI of the T10 area to rule out spinal cord compression. 3. Tumor markers have been ordered. 4. CAT scan of the chest, abdomen, and pelvis ordered these are pending. 5. TSH pending. 6. further treatment. 7. Appreciate Pulmonary and Cardiology recommendations. 8. Discussed with staff. 9. Antibiotics as needed. 10. . 11. Steroids, potential . 12. Pain control. Thank you, Dr. Jass Nolan, for this kind referral. Please do not hesitate to contact me if you have any further questions. Ariel Campuzano MD DR: SUREKHA JOB#: [id number] CC:
[2016-07-03] MEDS ORDERED: Vancomycin 750mg/D5W 275ml IVPB SCH ×2
--- NOTE | 2016-07-04 03:47 | Progress Note ---
DATE: 07/01/2016 CARDIOLOGY PROGRESS NOTE Late entry for 07/01/2016. SUBJECTIVE: The patient was seen and evaluated. Case was discussed with the patient and Dr. stroud. The patient has no chest pain or shortness of breath. Oxygen saturations have been adequate. He continues to have back pain. OBJECTIVE: VITAL SIGNS: Blood pressure 146/80, pulse 105, respirations 22, and afebrile. NECK: Supple. LUNGS: Clear. CARDIAC: Regular rhythm and rate. Normal S1 and S2 with a fourth heart sound. ABDOMEN: Soft. EXTREMITIES: Without edema. LABORATORY AND DIAGNOSTIC DATA: Echocardiogram revealed normal ejection fraction, was admitted with no significant valvular disease and a diastolic relaxation abnormality. Oxygen saturations on a facemask is 89% to 96%. Troponin level is less than 0.3 today. 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 IMPRESSION: 1. Metastatic neoplasm of unclear primary with rib and spine metastasis. 2. Hypercalcemia, likely related to above. 3. Acute myocardial ischemia with elevated troponin level on admission, likely due to hypoxia. 4. Dyspnea and hypoxia, still requiring respiratory treatment and oxygen supplementation. PLAN: 1. Maintain adequate oxygenation. 2. Transfer to a tertiary care facility is in progress to further define his malignancy. No other acute cardiovascular interventions are presently indicated. Del Gaines M.D. DR: DREA JOB#: [id number] CC:
[2016-07-04 09:40] LABS: ABNORMAL PROTEIN BAND 1 0.3 g/dL (Not Observed); ALBUMIN 3.2 g/dL (2.9-4.4); ALPHA-1 GLOBULIN 0.4 g/dL (0.0-0.4); ALPHA-2 GLOBULIN 0.7 g/dL (0.4-1.0); BETA GLOBULIN 1.1 g/dL (0.7-1.3); GAMMA GLOBULIN 0.9 g/dL (0.4-1.8); GLOBULIN, TOTAL 3.1 g/dL (2.2-3.9); TOTAL PROTEIN 6.3 g/dL (6.0-8.5)
--- NOTE | 2016-07-04 19:14 | Cardiology Report ---
APPROVED REPORT EKG Measurement Heart [id number] Sinus tachycardia Possible Left atrial enlargement Left axis deviation Incomplete right bundle branch block Cannot rule out Anterior infarct, age undetermined Abnormal ECG
== END 2016-07-02 17:18 | disposition short-term general hospital (02) | DRG 542 ==
LOC: EDBD 16:29 → EDBEDREQ 17:04 → EMR 18:15 → 2W 18:42 → EDBEDREQ 18:50
PROC: 5A09357 Assistance with Respiratory Ventilation, Less than 24 Consecutive Hours, Continuous Positive Airway Pressure (ICD-10-PCS; principal; 2016-06-29)
DX: C79.51 Secondary malignant neoplasm of bone (principal); J96.01 Acute respiratory failure with hypoxia; E83.52 Hypercalcemia; E87.3 Alkalosis; G95.29 Other cord compression; I51.3 Intracardiac thrombosis, not elsewhere classified; C80.1 Malignant (primary) neoplasm, unspecified; I51.7 Cardiomegaly; I10 Essential (primary) hypertension; M54.9 Dorsalgia, unspecified; M40.209 Unspecified kyphosis, site unspecified; R91.1 Solitary pulmonary nodule; R00.0 Tachycardia, unspecified; E87.6 Hypokalemia
CPT/HCPCS: 36415; 36600; 71010; 71275; 80053; 80061; 80300; 81001; 82378; 82550; 82553; 82803; 83735; 83880; 84100; 84153; 84165; 84443; 84484; 85025; 86301; 87040; 87070; 87086; 87181; 87205; 93005; 93306; 93970; 94640; 94660; 94664; 94760; J8499